=== PATIENT | female | born 1975 | race Caucasian/White ===

== ENCOUNTER 2017-04-29 17:19 | Emergency (ER) | payer MEDICAID ==
[2017-04-29 17:55] LABS: BASOPHILS 0.5 % (0-2); EOSINOPHILS 1.6 % (0-7); HEMOGLOBIN 12.5 g/dL (12-16); IMMATURE GRANULOCYTES 0.5 % (0-5); LYMPHOCYTES 30.9 % (15-50); MCH 32.6 pg (26.0-34.0); MCHC 32.9 g/dL (31.0-37.0); MEAN PLATELET VOLUME 8.7 fL (7.4-10.4); MONOCYTES 9.2 % (2-11); NEUTROPHILS 57.3 % (40-80); RBC 3.84 10x6/uL (4.00-5.40); RDW 16.6 % (11.5-14.5); WBC 7.3 10x3/uL (4.8-10.8)
[2017-04-29 17:56] LABS: PLATELET COUNT 268 10x3/uL (130-400)
[2017-04-29 18:07] LABS: APPEARANCE HAZY (CLEAR); BILIRUBIN 1+ (NEGATIVE); COLOR YELLOW (YELLOW); GLUCOSE NEGATIVE (NEGATIVE); KETONE NEGATIVE (NEGATIVE); LEUKOCYTE ESTERASE NEGATIVE (NEGATIVE); NITRITE NEGATIVE (NEGATIVE); PROTEIN NEGATIVE (NEGATIVE); UROBILINOGEN NORMAL (NORMAL)
[2017-04-29 18:12] LABS: ALBUMIN 3.7 g/dL (3.4-5.0); ANION GAP 15.7 mmol/L (8-16); BILIRUBIN - TOTAL 0.38 mg/dL (0.2-1.3); CALCIUM 8.4 mg/dL (8.5-10.1); CARBON DIOXIDE 25.2 mmol/L (21.0-32.0); CREATININE - SERUM 1.1 mg/dL (0.6-1.3); POTASSIUM - SERUM 3.9 mmol/L (3.5-5.1); PROTEIN - SERUM 7.2 g/dL (6.4-8.2)
[2017-04-29 19:46] LABS: AMYLASE - SERUM 44 U/L (25-115); LIPASE 223 U/L (73-393)
[2017-04-29 19:48] LABS: UDS - AMPHET NEGATIVE QUAL (NEGATIVE); UDS - BARB NEGATIVE QUAL (NEGATIVE); UDS - BENZO NEGATIVE QUAL (NEGATIVE); UDS - COCAINE NEGATIVE QUAL (NEGATIVE); UDS - METH NEGATIVE QUAL (NEGATIVE); UDS - OPIATE NEGATIVE QUAL (NEGATIVE); UDS - PCP NEGATIVE QUAL (NEGATIVE); UDS - THC NEGATIVE QUAL (NEGATIVE)
[2017-04-29 21:02] LABS: APTT 33.9 SECONDS (22.8-39.4); INR 0.91 (0.85-1.17); PROTIME 12.1 SECONDS (11.6-15.0)
[2017-05-02 12:14] LABS: HEPATITIS C ANTIBODY <0.1 (0.0-0.9)
== END 2017-04-29 22:46 | disposition home or self-care (01) ==
LOC: D.ER 17:19
PROVIDERS: Emergency Medicine; Physician Assistant
DX: K59.00 Constipation, unspecified (principal); R11.0 Nausea; R60.0 Localized edema; F17.200 Nicotine dependence, unspecified, uncomplicated; J44.9 Chronic obstructive pulmonary disease, unspecified

== ENCOUNTER 2018-12-19 16:48 | Emergency (ER) | payer MEDICAID ==
[~2018-12-19] VITALS: Ht 170.2 cm; Wt 65.0 kg
[2018-12-19 17:02] VITALS: BP 118/76; Ht 170.2 cm; Wt 65.0 kg
[2018-12-19] MEDS ORDERED: LEXAPRO20 MG PO (17:05)
[2018-12-19] MEDS ORDERED: LAMICTAL100 MG PO (17:05)
[2018-12-19] MEDS ORDERED: NEURONTIN600 MG PO (17:06)
[2018-12-19] MEDS ORDERED: TOPROL XL100 MG PO ×2 (17:06→17:07)
[2018-12-19] MEDS ORDERED: TRAZODONE HCL150 MG PO (17:06)
[2018-12-19 17:51] LABS: BASOPHILS 0.7 % (0-2); HEMATOCRIT 39.4 % (36.0-48.0); HEMOGLOBIN 13.4 g/dL (12-16); IMMATURE GRANULOCYTES 0.3 % (0-5); LYMPHOCYTES 32.1 % (15-50); MCH 29.9 pg (26.0-34.0); MCV 87.9 fL (80.0-100.0); MEAN PLATELET VOLUME 9.1 fL (7.4-10.4); MONOCYTES 6.3 % (2-11); NEUTROPHILS 57.6 % (40-80); PLATELET COUNT 251 10x3/uL (130-400); RBC 4.48 10x6/uL (4.00-5.40); RDW 15.7 % (11.5-14.5); WBC 7.4 10x3/uL (4.8-10.8)
[2018-12-19 18:13] LABS: ALBUMIN 4.1 g/dL (3.4-5.0); ANION GAP 16.2 mmol/L (8-16); BILIRUBIN - TOTAL 0.16 mg/dL (0.2-1.3); CALCIUM 9.3 mg/dL (8.5-10.1); CARBON DIOXIDE 21.3 mmol/L (21.0-32.0); CREATININE - SERUM 0.9 mg/dL (0.6-1.3); POTASSIUM - SERUM 3.5 mmol/L (3.5-5.1); PROTEIN - SERUM 7.6 g/dL (6.4-8.2)
== END 2018-12-19 22:00 | disposition home or self-care (01) ==
LOC: D.ER 16:48
PROVIDERS: Emergency Medicine
DX: R14.0 Abdominal distension (gaseous) (principal); K59.00 Constipation, unspecified